=== PATIENT | male | born 1980 | race Caucasian/White ===

== ENCOUNTER 2022-02-13 09:56 | Outpatient (RCR) | payer OTHER | END 2022-02-18 | LOC: M OT 09:56 | PROVIDERS: ATTEND Physician Assistant | DX: M66.28 Spontaneous rupture of extensor tendons, other site (principal) ==

== ENCOUNTER 2022-03-18 09:39 | Outpatient (RCR) | payer OTHER | END 2022-03-20 | LOC: M OT 09:39 | PROVIDERS: ATTEND Physician Assistant | DX: M66.28 Spontaneous rupture of extensor tendons, other site (principal) ==